=== PATIENT | male | born 1965 | race Caucasian/White ===

== ENCOUNTER 2020-11-14 05:56 | Day surgery (SDC) | payer OTHER ==
[~2020-11-14] VITALS: Ht 162.6 cm; Wt 76.2 kg
[2020-11-14] MEDS ORDERED: fentaNYL citrate 0.05 MG/ML VIAL ONE ×2 (07:40→09:50)
[2020-11-14 08:05] LABS: BASOPHILS # (AUTO) 0.1 K/uL (0.00-0.22); EOSINOPHILS # (AUTO) 0.1 K/uL (0-0.4); EOSINOPHILS % (AUTO) 1.6 % (0.0-4.0); HEMATOCRIT 42.7 % (36-52); HEMOGLOBIN 14.1 g/dL (12.0-18.0); LYMPHOCYTES # (AUTO) 1.6 K/uL (2.0-11.5); LYMPHOCYTES % (AUTO) 31.2 % (20.5-51.1); MEAN CORPUSCULAR HEMOGLOBIN 30 pg (27-31); MEAN CORPUSCULAR HGB CONC 33 g/dL (33-37); MEAN CORPUSCULAR VOLUME 91.8 fL (80-94); MONOCYTES # (AUTO) 0.3 K/uL (0.8-1.0); NEUTROPHILS # (AUTO) 3.1 K/uL (1.8-7.7); NEUTROPHILS % (AUTO) 61.2 % (42.2-75.2); PLATELET COUNT (AUTO) 306 K/uL (140-450); RED BLOOD CELL COUNT(AUTO) 4.65 MIL/uL (4.20-6.10); RED CELL DISTRIBUTION WIDTH 13.8 % (11.6-13.7)
[2020-11-14 08:09] LABS: ANION GAP 12.6 (8-16); CARBON DIOXIDE 26.3 mmol/L (21-32); POTASSIUM 3.9 mmol/L (3.5-5.1); TOTAL BILIRUBIN 0.7 mg/dL (0.0-1.0)
[2020-11-14] MEDS ORDERED: PROPOFOL 200 MG/20 ML VIAL IV ONE (09:01)
[2020-11-14] MEDS ORDERED: LIDOCAINE MPF 2% 100 MG/5 ML VIAL INJ ONE (09:02)
[2020-11-14] MEDS ORDERED: ONDANSETRON 4 MG/2 ML VIAL IVP PRN (09:20)
[2020-11-14] MEDS ORDERED: fentaNYL citrate 0.05 MG/ML VIAL IVP PRN (09:20)
[2020-11-14] MEDS ORDERED: LACTATED RINGERS 1,000 ML IV SCH (09:20)
[2020-11-14] MEDS ORDERED: oxyCODONE/APAP 5/325 MG 1 TAB TAB PO PRN (09:20)
[2020-11-14] MEDS ORDERED: diphenhydrAMINE 50 MG/ML VIAL IVP PRN (09:20)
[2020-11-14] MEDS ORDERED: GLYCOPYRROLATE 0.2 MG/ML VIAL ONE (09:49)
[2020-11-14] MEDS ORDERED: NEOSTIGMINE 1:1000 10 MG/10 ML VIAL ONE (09:49)
[2020-11-14] MEDS ORDERED: DEXAMETHASONE 4 MG/ML VIAL ONE (09:50)
[2020-11-14] MEDS ORDERED: ONDANSETRON 4 MG/2 ML VIAL ONE (09:50)
== END 2020-11-14 11:10 | disposition home or self-care (01) ==
LOC: MDS 05:56 → MMU 05:59 → MDS 11:10
PROVIDERS: ATTEND Internal Medicine Gastroenterology
DX: Z46.89 Encounter for fitting and adjustment of other specified devices (principal); I10 Essential (primary) hypertension; G20 Parkinson's disease; Z79.899 Other long term (current) drug therapy; Z90.49 Acquired absence of other specified parts of digestive tract
CPT/HCPCS: 36415; 43275; 71045; 74330; 80053; 85025; 87426; J1100; J2001; J2405; J2704; J2710; J3010; J3490; Q0092

== ENCOUNTER 2020-11-22 09:42 | Day surgery (SDC) | payer OTHER ==
[~2020-11-22] VITALS: Ht 162.6 cm; Wt 76.2 kg
[2020-11-22] MEDS ORDERED: fentaNYL citrate 0.05 MG/ML VIAL ONE (11:46)
[2020-11-22] MEDS ORDERED: LIDOCAINE 2% 100 MG/5 ML UJET TP ONE (11:46)
[2020-11-23] MEDS ORDERED: LORazepam 2 MG/ML VIAL ONE (06:25)
[2020-11-23] MEDS ORDERED: fentaNYL citrate 0.05 MG/ML VIAL IVP ONE (07:10)
== END 2020-11-22 12:25 | disposition home or self-care (01) ==
LOC: MDS 09:42 → MMU 09:46 → MDS 12:25
PROVIDERS: ATTEND Internal Medicine Gastroenterology
DX: Z12.11 Encounter for screening for malignant neoplasm of colon (principal); G20 Parkinson's disease; Z90.49 Acquired absence of other specified parts of digestive tract; Z79.899 Other long term (current) drug therapy
CPT/HCPCS: 45378; J3010; J2060